=== PATIENT | male | born 1955 | race Caucasian/White ===

== ENCOUNTER 2021-08-03 13:03 | Emergency (ER) | payer OTHER ==
[~2021-08-03] VITALS: Ht 188 cm; Wt 90.7 kg
[~2021-08-03 13:03] MED LIST: HYDROCHLOROTH12.5 M1 PO; LISINOPRIL10 MG PO
[2021-08-03 17:10] VITALS: BP 120/84
[2021-08-03] MEDS ORDERED: ERYTHROMYCIN E3.5 G3 OPHTHALMIC (17:10)
== END 2021-08-03 17:10 | disposition home or self-care (01) ==
LOC: M.ERS 13:03
DX: T15.91XA Foreign body on external eye, part unspecified, right eye, initial encounter (principal); I10 Essential (primary) hypertension; Z79.899 Other long term (current) drug therapy